=== PATIENT | female | born 1945 | race Caucasian/White ===

== ENCOUNTER → 2020-07-02 13:26 | Outpatient (CLI) | payer OTHER, SELFPAY ==
--- NOTE | ~2020-07-02 | US_ITS ---
EXAMINATION: US transvaginal DATE: 07/02/2020 13:55 INDICATION: Abnormal uterine and vaginal bleeding. TECHNIQUE: Multiple transvaginal sonographic images of the pelvis were obtained. COMPARISON: None. FINDINGS: The uterus measures 6.8 x 3.4 x 4.3 cm. In the uterine fundus on the left, there is a 3.0 cm hypoecho ic mass, consistent with a fibroid. There is a hyperechoic fibroid in the lower uterine segment measu ring 2.0 cm. There is no free fluid in the pelvis. The endometrial complex measures 20 mm in thicknes s. The ovaries are not visualized. IMPRESSION: 1. Thickened endometrial complex, which may be endometrial hyperplasia, polyp, or carcinoma. Biopsy i s recommended. 2. Uterine fibroids. Reviewed, dictated and finalized at location A. IMPRESSION: 1. Thickened endometrial complex, which may be endometrial hyperplasia, polyp, or carcinoma. Biopsy is recommended. 2. Uterine fibroids.
== END ==
PROVIDERS: PCP Emergency Medicine; Visit Provider Emergency Medicine
DX: N93.9 Abnormal uterine and vaginal bleeding, unspecified (principal); D25.9 Leiomyoma of uterus, unspecified
CPT/HCPCS: 76830

== ENCOUNTER 2020-08-14 04:27 | Emergency (ER) | payer OTHER, SELFPAY ==
--- NOTE | ~2020-08-14 | CT_ITS ---
EXAMINATION: CT abdomen pelvis wo con DATE: 08/14/2020 04:56 INDICATION: Left flank pain. History of kidney stones. TECHNIQUE: Computed tomography (CT) of the abdomen and pelvis was performed without intravenous contr ast. The dose-length product was 414.63 mGy-cm. Automated exposure control and iterative reconstructi on technique were employed. COMPARISON: None. FINDINGS: Multifocal patchy groundglass attenuation of the lower lung zones. Heart size normal. No si gnificant pleural or pericardial effusion. Mild atherosclerosis without aneurysm. No significant lymp hadenopathy. There is a 3-4 mm left proximal ureteral stone with moderate hydronephrosis. There is periureteral ed mary ann. There are multiple bilateral renal stones. There are calcified granulomas of the spleen. The ocampo creas, adrenal glands and liver are unremarkable. Gallbladder is present. Nonobstructive bowel gas pa ttern. No abnormal pelvic masses or fluid collections. Mild superior endplate compression deformity o f T11, likely chronic. IMPRESSION: 1. Left proximal ureteral stone measuring 3-4 mm with moderate hydronephrosis. 2: Nonobstructing bilateral nephrolithiasis. 3: Multifocal patchy groundglass attenuation of the lower lung zones which may relate to chronic int erstitial lung disease or less likely pneumonia. Reviewed, dictated and finalized at location A. 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 Left proximal ureteral stone measuring 3-4 mm with moderate hydronephrosis. 2: Nonobstructing bilateral nephrolithiasis. 3: Multifocal patchy groundglass attenuation of the lower lung zones which may relate to chronic interstitial lung disease or less likely pneumonia.
[2020-08-14 04:32] VITALS: BP 135/78; PULSE 108; RESP 18; TEMP 36.6; O2SAT 94
--- NOTE | 2020-08-14 04:34 | ED.BACK ---
HPI - Back Pain/Injury General Chief Complaint: Back Pain/Injury Stated Complaint: kidney stone , pain Time Seen by Provider: 08/14/20 04:29 History of Present Illness HPI Narrative: Sudden onset of severe left lower back pain early this morning. Feels like a hot poker. Associated with one episode of vomiting. No exacerbating or alleviating factors. Reminds her of pain from kidney stone many years ago. Recently diagnosed with ovarian cancer. Related Data Allergies Allergy/AdvReac Type Severity Reaction Status Date / Time No Known Allergies Allergy Verified 07/31/20 10:01 Review of Systems Review of Systems: All systems reviewed & are unremarkable except as noted in HPI and below Constitutional: Constitutional: Denies chills and Denies fever(s) Cardiovascular: Cardiovascular: Denies chest pain Respiratory: Respiratory: Denies dyspnea Gastrointestinal: Gastrointestinal: Denies abdominal pain, Reports nausea and Reports vomiting Genitourinary: Genitourinary: Denies hematuria, Denies dysuria and Reports flank pain Musculoskeletal: Musculoskeletal: Reports back pain Neurologic: Denies confusion and Denies weakness [facility] Past Medical History Medical History Diabetes mellitus HLD (hyperlipidemia) HTN (hypertension) Family History Family History Sibling Family history of malignant neoplasm Family history of Alzheimer's disease Mother Family history of malignant neoplasm, Onset Age: 60 Sibling Uterine cancer Social History Social History Smoking status: Never smoker Alcohol intake: never Exam Const: Other: Mild distress HENMT: Head: normal to inspection Resp: Effort & Inspection: normal respiratory effort Auscultation: clear to auscultation bilaterally Cardio: Rate: regular rate and tachycardic Rhythm: regular rhythm GI: GI Palp: Yes Soft to palpation and No Tenderness to palpation present (GI) : General: Yes no CVA tenderness Skin: General skin exam: normal color Neuro: General: patient oriented x3, moves all extremities, no focal motor deficits and CN's II-XI intact bilaterally Speech: normal speech Gait exam (Neuro): Normal gait present Course Vital Signs Vital signs: Vital Signs Temperature 36.6 C 08/14/20 04:32 Pulse Rate 108 H 08/14/20 04:32 Respiratory Rate 18 08/14/20 04:32 Blood Pressure 135/78 08/14/20 04:32 Pulse Oximetry 94 08/14/20 04:32 Temperature 36.6 C 08/14/20 04:32 Pulse Rate 108 H 08/14/20 04:32 Respiratory Rate 18 08/14/20 04:32 Blood Pressure 135/78 08/14/20 04:32 Pulse Oximetry 94 08/14/20 04:32 MDM - Back Pain/Injury Differential Diagnosis Differential diagnosis: Likely strain of lumbar region, renal colic, pyelonephritis, thoracic back pain and AAA Medical Records Attestation: I reviewed the patient's medical records. Lab Data Attestation: I reviewed the patient's lab results. Result diagrams: 08/14/20 04:43 08/14/20 04:43 Labs: Lab Results 08/14/20 08/14/20 08/14/20 Range/Units 04:43 04:43 05:44 WBC 13.0 H (4.5-10.0) K/mm3 RBC 5.08 (4.2-5.4) M/mm3 Hgb 15.3 H (12.0-15.0) g/dL Hct 45.9 (37.0-47.0) % MCV 90.4 (80-100) fl MCH 30.1 (26-34) pg MCHC 33.3 (32-36) g/dl RDW 12.7 (11.5-14.5) % Plt Count 307 (150-375) k/mm3 MPV 10.5 H (7.4-10.4) fl Immature Gran % (Auto) 0.3 (0-0.5) % Neut % (Auto) 85.3 H (45.5-73.1) % Lymph % (Auto) 9.4 L (18.3-44.2) % [place] % (Auto) 4.5 (2.6-8.5) % Eos % (Auto) 0.3 (0-4.4) % Baso % (Auto) 0.2 (0.2-1.2) % Lymph # (Auto) 1.23 (0.9-3.2) K/mm3 [place] # (Auto) 0.6 (0.1-0.6) K/mm3 Eos # (Auto) 0.0 (0-0.3) K/mm3 Baso # (Auto) 0.0 (0.0-0.1) K/mm3 Abs Immat Gran (auto) 0.04 H (0
--- NOTE | 2020-08-14 04:48 | PC.NURSE ---
Patient to CT
[2020-08-14 05:00] LABS: Basophils Percent Auto 0.2 % (0.2-1.2); Eosinophils Percent Auto 0.3 % (0-4.4); Hematocrit 45.9 % (37.0-47.0); Hemoglobin 15.3 g/dL (12.0-15.0); Immature Granulocyte Absolute 0.04 K/mm3 (0.00-0.031); Immature Granulocyte Percent A 0.3 % (0-0.5); Lymphocytes Absolute Auto 1.23 K/mm3 (0.9-3.2); Lymphocytes Percent Auto 9.4 % (18.3-44.2); Mean Corpuscular HGB Conc 33.3 g/dl (32-36); Mean Corpuscular Hemoglobin 30.1 pg (26-34); Mean Corpuscular Volume 90.4 fl (80-100); Mean Platelet Volume 10.5 fl (7.4-10.4); Monocytes Absolute Auto 0.6 K/mm3 (0.1-0.6); Monocytes Percent Auto 4.5 % (2.6-8.5); Neutrophils Absolute Auto 11.1 K/mm3 (1.3-6.7); Neutrophils Percent Auto 85.3 % (45.5-73.1); Platelet Count Result 307 k/mm3 (150-375); Red Blood Count 5.08 M/mm3 (4.2-5.4); Red Cell Distribution Width 12.7 % (11.5-14.5)
[2020-08-14] MEDS: ONDANSETRON INJ 4 MG/2 ML VIAL IV PUSH (05:03)
[2020-08-14] MEDS: MORPHINE SULFATE (*CRX) 4 MG/ML INJ IV PUSH (05:03)
[2020-08-14] MEDS: TAMSULOSIN HCL 0.4 MG CAPSULE PO (05:11)
[2020-08-14 05:13] LABS: Alanine Aminotransferase 20 U/L (4-35); Albumin Level 4.4 g/dL (3.5-5.1); Alkaline Phosphatase 107 U/L (38-126); Anion Gap 11 mmol/L (8-16); Aspartate Amino Transferase 24 U/L (14-36); Bilirubin,Total 0.8 mg/dL (0.2-1.3); Blood Urea Nitrogen 23 mg/dL (7-17); Calcium 9.8 mg/dL (8.4-10.2); Carbon Dioxide 28 mmol/L (22-30); Chloride 102 mmol/L (98-107); Estimated CRCL calculation 48 ml/min; Estimated Glomerular Filt Rate > 60; Glucose 162 mg/dL (65-105); Potassium 4.4 mmol/L (3.4-5.0); Sodium 141 mmol/L (137-145)
[2020-08-14] MEDS: SODIUM CHLORIDE 0.9% IV 1,000 ML 999 ML IV CONT (05:19)
[2020-08-14] MEDS: KETOROLAC 30 MG/ML VIAL (*BKC) IV PUSH (05:47)
[2020-08-14 06:06] LABS: Add Urine Microscopic? YES; Appearance Urine Clear (Clear); Bacteria Urine Trace /hpf; Bilirubin Urine Negative (Negative); Blood Urine 3+ (Negative); Calcium Oxalate Crystals Urine Present /hpf; Color Urine Yellow (Yellow); Glucose Urine UA Negative (Negative); Ketones Urine Negative (Negative); Leukocyte Esterase Ur Trace LEU/UL (Negative); Mucus Urine Moderate /lpf; Nitrate Urine Negative (Negative); Protein Urine 2+ mg/dL (Negative); RBC Urine >75 /hpf (0-2); Specific Grav Ur 1.023 (1.001-1.035); Squamous Epithelial Cell Urine Few /hpf (Few); Urobilinogen Urine Negative mg/dL (<2.0)
[2020-08-14 06:44] VITALS: BP 103/61; PULSE 91; RESP 18; TEMP 36.6; O2SAT 94
== END 2020-08-14 06:46 | disposition home or self-care (01) ==
PROVIDERS: Emergency Provider Emergency Medicine; PCP Emergency Medicine
DX: N13.2 Hydronephrosis with renal and ureteral calculous obstruction (principal); C56.9 Malignant neoplasm of unspecified ovary; E11.9 Type 2 diabetes mellitus without complications; E78.5 Hyperlipidemia, unspecified; I10 Essential (primary) hypertension; R91.8 Other nonspecific abnormal finding of lung field
CPT/HCPCS: 36415; 74176; 80053; 81001; 85025; 96361; 96374; 96375; 99284; A9270; J1885; J2270; J2405; J7030

== ENCOUNTER → 2021-04-07 16:15 | Outpatient (CLI) | payer OTHER, SELFPAY ==
--- NOTE | ~2021-04-07 | MM_ITS ---
EXAMINATION: MM screening [facility] BI w marilyn HISTORY: Screening TECHNIQUE: Craniocaudal and mediolateral oblique 3-D tomosynthesis images were obtained and synthetic 2-D images were generated. CAD analysis was submitted and interpreted. COMPARISON: Comparison to multiple prior studies sequentially, with oldest reviewed study dated 10/2013. BREAST PARENCHYMAL COMPOSITION: There are scattered areas of fibroglandular density. FINDINGS: There is no evidence of suspicious mass, calcification, or architectural distortion to sugg est malignancy in either breast. There has been no suspicious interval change. IMPRESSION: 1. No mammographic evidence of malignancy. 2. Recommend routine screening mammography in one year. BI-RADS Category 1: Negative Reviewed, dictated and finalized at location A.
== END ==
PROVIDERS: PCP Emergency Medicine; Visit Provider Emergency Medicine
DX: Z12.31 Encounter for screening mammogram for malignant neoplasm of breast (principal)
CPT/HCPCS: 77063; 77067

== ENCOUNTER 2023-03-22 02:20 | Day surgery (SDC) | payer OTHER, SELFPAY ==
[2023-03-16 13:24] VITALS: BMI 25.9
[2023-03-22 08:11] VITALS: BP 115/77; PULSE 64; RESP 20; TEMP 36.7; O2SAT 96; BMI 26.2
[2023-03-22 08:23] LABS: Glucose Point of Care 105 mg/dl (65-105)
[2023-03-22] MEDS: LACTATED RINGERS 1,000 ML 150 ML IV CONT (08:29)
--- NOTE | 2023-03-22 08:33 | P.PNAN_ITS ---
Anes - Initial Pre Proc Eval Procedure: Operation Date: 03/22/23 09:15 Proposed Procedures p Screening Colonoscopy - Percy Dc MD Date/Time: 03/22/23 08:33 Surgeon: Percy Dc MD Pre Op Diagnosis: neoplasm screening Patient Data Age: 77 Gender: F Height: 1.7 m Weight: 75.9 kg Last Vital Signs Temp 98.0 F 03/22/23 08:11 Pulse 64 03/22/23 08:11 Resp 20 03/22/23 08:11 BP 115/77 03/22/23 08:11 Pulse Ox 96 03/22/23 08:11 O2 Del Method Room Air 03/22/23 08:11 Allergies Allergy/AdvReac Type Severity Reaction Status Date / Time No Known Allergies Allergy Verified 03/22/23 08:10 Home Medications Medication Instructions Recorded Confirmed Type lisinopril 20 mg tablet See Rx Instructions .Route 01/14/23 03/22/23 Rx .COMPLEX #90 tabs metformin 500 mg tablet See Rx Instructions .Route 01/14/23 03/22/23 Rx .COMPLEX #180 tabs simvastatin 5 mg tablet See Rx Instructions .Route 01/14/23 03/22/23 Rx .COMPLEX #90 tabs multivitamin with minerals-folic 1 tablet PO DAILY 03/16/23 03/22/23 History acid 80 mcg chewable tablet (Centrum Adult 50 Plus) Laboratory Tests 03/22/23 08:22 POC Capillary Glucose 105 mg/dl (65-105) Patient hx anesthesia problems: none Family hx anesthesia problems: none Results Review: All pre-operative results and documents have been reviewed as part of the pre- operative evaluation. [facility] Past Medical History Medical History Diabetes mellitus HLD (hyperlipidemia) HTN (hypertension) Family History Family History Sibling Family history of malignant neoplasm Family history of Alzheimer's disease Mother Family history of malignant neoplasm, Onset Age: 60 Sibling Uterine cancer Social History Social History Smoking status: Never smoker Alcohol intake: never Substance use: never Substance use type: does not use Living arrangements: with family Spiritual care concerns: No Anes - Eval Final PreProcedure Day of Procedure 03/22/23 08:33 Patient weight: normal Heart: regular rate and rhythm Lungs: clear to auscultation Airway: Mallampati scale class II Neurological: alert and oriented Last oral intake: >/= 8 hours ASA classification: III Emergent: no Anesthetic plan: proceed Anesthesia type and monitoring: general GIVS and standard monitoring Results Review: All pre-operative results and documents have been reviewed as part of the pre- operative evaluation. Informed Consent: The patient's anesthetic plan and its attendant risks and benefits were discussed with the patient/family/POA. Questions were solicited and answers provided to the satisfaction of the patient/family/POA.
--- NOTE | 2023-03-22 08:55 | PM.HPGS ---
History of Present Illness History of Present Illness Consent: Risks, benefits, and alternatives have been discussed and questions answered. Patient agrees to proceed with procedure. Chief complaint: neoplasm screening Narrative: Mari Holbrook is a 77 year old female here for screening colonoscopy, last one 9 years ago. Review of Systems Constitutional: Constitutional: Denies headache(s) and Denies weakness Eyes: Eyes: Denies blurry vision ENT: Reports Normal hearing present, Denies headache(s) and Denies neck pain Cardiovascular: Cardiovascular: Denies chest pain and Denies dyspnea Respiratory: Respiratory: Denies dyspnea Gastrointestinal: Gastrointestinal: Reports no additional gastrointestinal complaints Genitourinary: Genitourinary: Denies dysuria Musculoskeletal: Musculoskeletal: Denies neck pain Integumentary/Breasts: Skin/Breast: Denies dry skin Neurologic: Reports Normal hearing present, Denies headache(s) and Denies weakness Psychiatric: Psychiatric: Denies anxiety Endocrine: Endocrine: Denies change in body appearance Hematologic/Lymphatic: Hematologic/Lymphatic: Denies easy bleeding Allergic/Immunologic: Allergic/Immunologic: Denies urticaria PMFSH Past Medical History Medical History (Updated 03/22/23 @ 08:55 by Percy Dc MD) Colon cancer screening Diabetes mellitus HLD (hyperlipidemia) HTN (hypertension) Family History Family History Sibling Family history of malignant neoplasm Family history of Alzheimer's disease Mother Family history of malignant neoplasm, Onset Age: 60 Sibling Uterine cancer Social History Social History Smoking status: Never smoker Alcohol intake: never Substance use: never Substance use type: does not use Living arrangements: with family Spiritual care concerns: No Meds Home Medications and Allergies Home Medications Medication Instructions Recorded Confirmed Type lisinopril 20 mg tablet See Rx Instructions .Route 01/14/23 03/22/23 Rx .COMPLEX #90 tabs metformin 500 mg tablet See Rx Instructions .Route 01/14/23 03/22/23 Rx .COMPLEX #180 tabs simvastatin 5 mg tablet See Rx Instructions .Route 01/14/23 03/22/23 Rx .COMPLEX #90 tabs multivitamin with minerals-folic 1 tablet PO DAILY 03/16/23 03/22/23 History acid 80 mcg chewable tablet (Centrum Adult 50 Plus) Allergies Allergy/AdvReac Type Severity Reaction Status Date / Time No Known Allergies Allergy Verified 03/22/23 08:10 Vital Signs Vital Signs - 24 hr 03/22/23 08:11 Temperature 98.0 F Pulse Rate 64 Respiratory Rate 20 Blood Pressure 115/77 Pulse Oximetry 96 Oxygen Delivery Room Air Exam Const: General: comfortable and no acute distress HENMT: Face/Nose/Sinus: Normal nares present Eyes: General: appearance normal, both eyes and all related structures Neck: Neck: no JVD Resp: Auscultation: clear to auscultation bilaterally Cardio: Rate: regular rate Rhythm: regular rhythm GI: Inspection: non-distended GI Palp: Yes Soft to palpation Skin: General skin exam: normal color Neuro: General: gait normal Speech: normal speech Extrem: General: normal to inspection Psych: Mental Status: mental status grossly normal Assessment and Plan Assessment and plan (1) Colon cancer screening: Code(s): Z12.11 - Encounter for screening for malignant neoplasm of colon Status: Acute Assessment and Plan: colonoscopy
[2023-03-22 09:15] VITALS: BP 110/61; PULSE 80; RESP 33; O2SAT 95
[2023-03-22 09:25] VITALS: BP 109/69; PULSE 67; RESP 26; O2SAT 94
[2023-03-22 09:34] VITALS: BP 112/70; PULSE 63; RESP 24; O2SAT 95
== END 2023-03-22 09:39 | disposition home or self-care (01) ==
PROVIDERS: PCP Emergency Medicine; Visit Provider Internal Medicine Gastroenterology
PROC: 0DJD8ZZ Inspection of Lower Intestinal Tract, Via Natural or Artificial Opening Endoscopic (ICD-10-PCS; CPT 45378; principal; 2023-03-22 09:15)
DX: Z12.11 Encounter for screening for malignant neoplasm of colon (principal); D12.3 Benign neoplasm of transverse colon; K57.30 Diverticulosis of large intestine without perforation or abscess without bleeding; K64.8 Other hemorrhoids; I10 Essential (primary) hypertension; E78.5 Hyperlipidemia, unspecified; E11.9 Type 2 diabetes mellitus without complications; Z79.84 Long term (current) use of oral hypoglycemic drugs
CPT/HCPCS: 45385; 82948; 88305; J2704; J7120

== ENCOUNTER → 2023-04-12 14:43 | Outpatient (CLI) | payer OTHER, SELFPAY ==
--- NOTE | ~2023-04-12 | MM_ITS ---
EXAMINATION: MM screening [facility] BI w marilyn HISTORY: Screening mammogram TECHNIQUE: Craniocaudal and mediolateral oblique 3-D tomosynthesis images were obtained and synthetic 2-D images were generated. CAD analysis was submitted and interpreted. COMPARISON: 04/07/2021 and 12/29/2017 BREAST PARENCHYMAL COMPOSITION:There are scattered areas of fibroglandular density. FINDINGS: No suspicious mass, calcification, or architectural distortion are identified in either bladimir ast to suggest malignancy. There has been no suspicious interval change. IMPRESSION: No mammographic evidence of malignancy. Recommend routine screening mammography in one year. BI-RADS Category 1: Negative Reviewed, dictated and finalized at location .
--- NOTE | ~2023-04-12 | DEXA_ITS ---
Bone Density Report Name: FRANKY STRONG Age: 77 Sex: Female Ethnicity: White Date of : 1945 Indication: postmenopausal; screening for osteoporosis; hysterectomy; Referring Provider: ZION PARRISH Study: Bone densitometry was performed. Exam Date: April 12, 2023 Accession number: [id number] Bone Density: Region BMD T-score Z-score Classification AP Spine (L1, L2, L3) 0.953 -0.6 1.8 Normal Femoral Neck (Left) 0.674 -1.6 0.5 Osteopenia Total Hip (Left) 0.850 -0.8 1.1 Normal Femoral Neck (Right) 0.730 -1.1 1.0 Osteopenia Total Hip (Right) 0.871 -0.6 1.2 Normal Total Hip Mean 0.861 -0.7 1.2 Normal World Health Organization criteria for BMD impression classify patients as: Normal (T-score at or above -1.0), Osteopenia (T-score between -1.0 and -2.5), or Osteoporosis (T-score at or below -2.5). 10-year Fracture Risk(1): Major Osteoporotic Fracture 12% Hip Fracture 2.4% Reported Risk Factors: [place] (), Neck BMD=0.674, BMI=27.4 (1) FRAX(R) Version 3.08. Fracture probability calculated for an untreated patient. Fracture probability may be lower if the patient has received treatment. Previous Exams: Region Exam Age BMD T-score BMD Change BMD Change Date g/cm2 vs Baseline vs Previous AP Spine(L1, L2, L3) 04/12/2023 77 0.953 -0.6 -0.041* -0.089* 12/29/2017 72 1.042 0.2 0.048* 0.048* 09/21/2013 68 0.994 -0.2 Total Hip(Left) 04/12/2023 77 0.850 -0.8 -0.172* -0.037* 12/29/2017 72 0.887 -0.4 -0.135* -0.135* 09/21/2013 68 1.022 0.7 Total Hip(Right) 04/12/2023 77 0.871 -0.6 -0.143* -0.054* 12/29/2017 72 0.925 -0.1 -0.089* -0.089* 09/21/2013 68 1.014 0.6 *Denotes significance at 95% confidence level, LSC for AP Spine = 0.022 g/cm2, LSC for Total Hip = 0.027 g/cm2 Clinical Information Provided by Patient: Has the following medical conditions: Hysterectomy, HX OF UTERINE CA WITH RADIATION IN 2019 Patient maximum height was 67.0 Menopause Age: 58 No regular weight bearing exercise Drinks caffeinated beverages Onset of menses at age 15 Number of children 0 Impression: The patient has low bone mass, based on the Left Femoral Neck T-score. The patient has an estimated ten-year risk of hip fracture of 2.4% and an estimated ten-year risk of major fracture of 12%, based on the WHO FRAX algorit
== END ==
PROVIDERS: PCP Emergency Medicine; Visit Provider Emergency Medicine
DX: Z12.31 Encounter for screening mammogram for malignant neoplasm of breast (principal); M81.0 Age-related osteoporosis without current pathological fracture; M85.852 Other specified disorders of bone density and structure, left thigh; M85.851 Other specified disorders of bone density and structure, right thigh
CPT/HCPCS: 77063; 77067; 77080

== ENCOUNTER 2025-08-23 14:21 | Outpatient (CLI) | payer OTHER, SELFPAY ==
--- NOTE | ~2025-08-23 | MM_ITS ---
EXAMINATION: MM screening [facility] BI w marilyn HISTORY: Screening. TECHNIQUE: Craniocaudal and mediolateral oblique 3-D tomosynthesis images were obtained and synthetic 2-D images were generated. CAD analysis was submitted and interpreted. COMPARISON: 2023 and 2022 BREAST PARENCHYMAL COMPOSITION: Dense: The breasts are heterogeneously dense FINDINGS: There are multiple, bilateral, circumscribed nodules/masses, a benign finding. No suspicious masses are seen. There are no suspicious calcifications. No unexplained architectural distortion is seen. There are no skin or nipple abnormalities identified. There is no adenopathy seen on the images submitted. IMPRESSION: No mammographic evidence to suggest malignancy is seen. The patient may return to screening mammography as per ACR guidelines. BI-RADS 2 - Benign. Reviewed, dictated and finalized at location C. OOD PATCHER
--- NOTE | ~2025-08-23 | DEXA_ITS ---
Bone Density Report Name: FRANKY STRONG Age: 80 Sex: Female Ethnicity: White Date of : 1945 Indication: postmenopausal; screening for osteoporosis; Referring Provider: ZION PARRISH Study: Bone densitometry was performed. Exam Date: August 23, 2025 Accession number: [id number] Bone Density: Region BMD T-score Z-score Classification AP Spine(L1, L2, L3) 0.948 -0.6 1.9 Normal Femoral Neck (Left) 0.654 -1.8 0.5 Osteopenia Total Hip (Left) 0.816 -1.0 0.9 Normal Femoral Neck (Right) 0.737 -1.0 1.2 Normal Total Hip (Right) 0.811 -1.1 0.9 Osteopenia Total Hip Mean 0.813 -1.1 0.9 Osteopenia World Health Organization criteria for BMD impression classify patients as: Normal (T-score at or above -1.0), Osteopenia (T-score between -1.0 and -2.5), or Osteoporosis (T-score at or below -2.5). 10-year Fracture Risk(1): Major Osteoporotic Fracture 14% Hip Fracture 3.3% Reported Risk Factors: [place] (), Neck BMD=0.654, BMI=27.9 (1) FRAX(R) Version 3.08. Fracture probability calculated for an untreated patient. Fracture probability may be lower if the patient has received treatment. Previous Exams: -- Region Exam Age BMD T-score BMD Change BMD Change Date g/cm2 vs Baseline vs Previous -- AP Spine (L1-L3) 08/23/2025 80 0.948 -0.6 -4.6%* -0.5% 04/12/2023 77 0.953 -0.6 -4.1%* -8.6%* 12/29/2017 72 1.042 0.2 4.9%* 4.9%* 09/21/2013 68 0.994 -0.2 Total Hip(Left) 08/23/2025 80 0.816 -1.0 -20.2%* -4.0%* 04/12/2023 77 0.850 -0.8 -16.8%* -4.2%* 12/29/2017 72 0.887 -0.4 -13.2%* -13.2%* 09/21/2013 68 1.022 0.7 Total Hip(Right) 08/23/2025 80 0.811 -1.1 -20.1%* -6.9%* 04/12/2023 77 0.871 -0.6 -14.1%* -5.9%* 12/29/2017 72 0.925 -0.1 -8.8%* -8.8%* 09/21/2013 68 1.014 0.6 -- *Denotes significance at 95% confidence level, LSC for AP Spine = 0.022 g/cm2, LSC for Total Hip = 0.027 g/cm2 Rate of change results reflect vertebral levels common to all scans Clinical Information Provided by Patient: Has used the following medications: Vitamin D Patient maximum height was 67 Menopause Age: 58 No regular weight bearing exercise Drinks caffeinated beverages Onset of menses at age 16 Number of children 0 Impression: The patient has low bone mass, based on the Left Femoral Neck T-score. The patient has an estimated ten-year risk of hip fracture of 3.3% and an estimated ten-year risk of major fracture of 14%, based on the WHO FRAX algorithm. The BMD for the Total Hip(Left) decreased, changing by -4.0% since the last DXA exam. The BMD for the Total Hip(Right) decreased, changing by -6.9% since the last DXA exam. Discussion: BONE DENSITY IS LOW AT ONE OR MORE SKELETAL SITES. THE PATIENT'S BMD AND CLINICAL RISK FACTORS CONTRIBUTE TO THIS PATIENT'S INCREASED RISK OF FRACTURE. This patient's lowest T-score is low at one or more skeletal sites. It meets the World Health Organization's (WHO) criteria for ?low bone mass? (T-score between -1.0 and -2.5). The patient's 10-year risk of hip fracture as calculated by FRAX exceeds the threshold where pharmacological therapy is recommended by the National Osteoporosis Foundation (NOF). However, all treatment decisions require clinical judgment and consideration of individual patient factors, including patient preferences, comorbidities, previous drug use, risk factors not captured in the FRAX model (e.g., frailty, falls, vitamin D deficiency, increased bone turnover, interval significant decline in bone density) and possible under or overestimation of fracture risk by FRAX. The patient should follow a healthful lifestyle (good nutrition with adequate calcium and vitamin D, and appropriate weight-bearing exercise). Follow-Up: Consider a repeat BMD and Vertebral Fracture Assessment (VFA) exam in 2 years or sooner if medically necessary, to reassess this patient's status. Reported by: PAVAN on 08/23/2025 2:40:00 PM. Reviewed, dictated and finalized at location A.
== END 2025-08-23 14:22 | disposition home or self-care (01) ==
LOC: MICIMG 14:23
PROVIDERS: PCP Emergency Medicine; Visit Provider Emergency Medicine
DX: Z12.31 Encounter for screening mammogram for malignant neoplasm of breast (principal); M85.89 Other specified disorders of bone density and structure, multiple sites; Z78.0 Asymptomatic menopausal state; Z13.820 Encounter for screening for osteoporosis
CPT/HCPCS: 77063; 77067; 77080